=== PATIENT | female | born 1965 | race Caucasian/White ===

== ENCOUNTER 2022-09-12 16:19 | Emergency (ER) | payer MEDICAID ==
[~2022-09-12] VITALS: Ht 152.4 cm; Wt 81.0 kg
[2022-09-12 17:01] VITALS: BP 151/64
[2022-09-12] MEDS ORDERED: TETANUS, DIPHTHERIA, PERTUSSIS VAC/PF 0.5ML (>10YR OLD) IM ONE (20:18)
[2022-09-12] MEDS ORDERED: TETANUS AND DIPHTHERIA TOX/PF 0.5ML SYR (ADULT) IM ONE (20:30)
== END 2022-09-12 23:51 | disposition home or self-care (01) ==
LOC: ER 16:19
DX: S91.142A Puncture wound with foreign body of left great toe without damage to nail, initial encounter (principal); W22.09XA Striking against other stationary object, initial encounter; W25.XXXA Contact with sharp glass, initial encounter; Y93.01 Activity, walking, marching and hiking; Y92.89 Other specified places as the place of occurrence of the external cause
CPT/HCPCS: 73630; 90471; 90714; 90715; 99284